=== PATIENT | female | born 1995 | race Caucasian/White ===

== ENCOUNTER 2019-04-06 14:58 | Inpatient (IN) | payer BC ==
[~2019-04-06 14:58] MED LIST: Bupivacaine/Epinephrine 0.25% 30 ML VIAL ONE
[2019-04-06] MEDS ORDERED: Butorphanol Tartrate 1 MG/ML VIAL SLOW IVP PRN (21:07)
[2019-04-06] MEDS ORDERED: Carboprost 250 MCG/ML AMP IM PRN (21:07)
[2019-04-06] MEDS ORDERED: Ibuprofen 800 MG TAB PO PRN (21:07)
[2019-04-06] MEDS ORDERED: Promethazine HCl 25 MG/ML VIAL IM PRN (21:07)
[2019-04-06] MEDS ORDERED: Methylergonovine 0.2 MG/ML VIAL IM PRN (21:07)
[2019-04-06] MEDS ORDERED: Ondansetron PF 4 MG/2 ML Vial IVP PRN (21:07)
[2019-04-06] MEDS ORDERED: Diphenoxylate HCl/Atropine Tablet PO PRN (21:07)
[2019-04-06] MEDS ORDERED: NS / Oxytocin 40 units/1000ml 1,000 ML IV PRN (21:07)
[2019-04-06] MEDS ORDERED: Acetaminophen 500 MG TAB PO PRN (21:07)
[2019-04-06] MEDS ORDERED: Misoprostol 200 MCG TAB PR PRN (21:07)
[2019-04-06] MEDS ORDERED: HYDROcodone/Acetaminophen 5/325 mg Tablet PO PRN (21:07)
[2019-04-06] MEDS ORDERED: Lidocaine 1% (PF) 30 ML VIAL SC PRN (21:07)
[2019-04-06] MEDS ORDERED: hydrALAZINE 20 MG/ML VIAL SLOW IVP PRN (21:07)
[2019-04-06 21:17] VITALS: BMI 40.0
[2019-04-06] MEDS: Lactated Ringer's 1,000 ML IV SCH (21:30)
[2019-04-06] MEDS ORDERED: Penicillin G Potassium 5 MILL.UNITS in Sodium Chloride 0.9% 100 ML IVPB SCH (21:30)
[2019-04-06 21:53] LABS: Hemoglobin 13.5 g/dL (12.0-16.0); Mean Corpuscular HGB CONC 33.8 g/dL (32.0-36.0); Mean Corpuscular Hemoglobin 31.5 pg (27.0-31.0); Mean Platelet Volume 7.9 fL (7.4-10.4); Platelet Count 260 thou/uL (130-400); RBC Distribution Width 11.5 % (11.5-14.5); White Blood Cell (WBC) Count 12.6 thou/uL (4.8-10.8)
[2019-04-06] MEDS: Misoprostol 100 MCG TAB VAG SCH (22:34)
[2019-04-06 22:42] LABS: Syphilis Antibody Nonreactive (Nonreactive)
[2019-04-07 01:22] LABS: HBSAg Index 0.14 S/CO (0-0.99); HIV (1/2) Antibody/Antigen Non-Reactive (NonReactive); HIV 1/2 INDEX 0.07 S/CO (<1.00); Hep B Surf Ag Non-Reactive S/CO (NonReactive)
[2019-04-07] MEDS: Misoprostol 100 MCG TAB VAG SCH ×4 (03:05→22:46)
[2019-04-07] MEDS ORDERED: NS w/ Oxytocin 10 units 500 ML IV SCH (06:00)
[2019-04-07] MEDS: Penicillin G 2.5 MILL.units 2.5 MILL.UNITS in Premix Bag 1 BAG IVPB SCH ×5 (06:01→22:42)
--- NOTE | 2019-04-07 08:26 | PDOC.LDHP ---
Labor and Delivery H&P Chief complaint: scheduled induction HPI: 24 yo G1 @ 39w6d by LMP c/w 8 week CRL who presented for EIOL. Family hx of congenital cataracts on paternal side, otherwise normal antepartum course. MFM sono wnl. Current gestational age (weeks): 39 Due date: 04/08/19 Dating criteria: last menstrual period Grav: 1 Para: 0 Current complications: none Abnormal US findings: Yes Past Medical History: Denies Current medications: pre- vitamins Previous surgical history: none Allergies/Adverse Reactions: Allergies Allergy/AdvReac Type Severity Reaction Status Date / Time No Known Allergies Allergy Unverified 04/06/19 21:18 Social history: none - Physical Exam Vital signs reviewed and normal: yes General: NAD Heart: RRR Lungs: nonlabored breathing Abdomen: gravid Extremeties: no edema FHT: category 1 (130s, mod jamilah, +accels, no decels) [place] contractions every: q2-4 min - Vaginal Exam cm dilated: 3 (AROM clear- FSE and IUPC placed ) Effacement: 75% Station: -2 - OB Labs Blood type: A RH: positive Antibody Screen: negative HIV: negative RPR: negative HEPSAg: negative 1 hour GCT: negative GBS: positive Urine drug screen: negative Rubella: immune - Assessment 39w6d IUP EIOL FOB with h/o congenital cataracts GBS + - Plan Plan: admit to L&D, cervical ripening (s/p cytotec x 2; now on pitocin and s/p AROM), GBS antibiotic prophylaxis, informed consent obtained, anesthesia consult for pain management
[2019-04-07] MEDS ORDERED: Fentanyl 4 mcg/Bup 0.1% Cadd 0 ML ONE (08:33)
[2019-04-07] MEDS ORDERED: Lactated Ringer's 500 ML IV PRN (09:56)
[2019-04-07] MEDS ORDERED: Promethazine HCl 25 MG/ML VIAL IM PRN (09:56)
[2019-04-07] MEDS ORDERED: Naloxone HCl 0.4 mg/ml Vial IVP PRN ×2 (09:56)
[2019-04-07] MEDS ORDERED: Ondansetron PF 4 MG/2 ML Vial IVP PRN (09:56)
[2019-04-07] MEDS ORDERED: diphenhydrAMINE 50 MG/ML VIAL IVP PRN (09:56)
[2019-04-07] MEDS ORDERED: ePHEDrine/0.9% NaCl/PF SYRINGE 50 mg/10 ml SLOW IVP PRN (09:56)
[2019-04-07] MEDS ORDERED: Acetaminophen 325 MG TAB PO PRN (09:56)
[2019-04-07] MEDS ORDERED: Fentanyl 4 mcg/Bupivacaine 0.1% Cassette 100 ML EPIDURAL SCH (10:00)
[2019-04-07] MEDS ORDERED: Communication Order-Pharmacy FS SCH (10:00)
--- NOTE | 2019-04-07 12:35 | PDOC.LDPN ---
Labor & Delivery Progress Note - Subjective Subjective: comfortable - Objective Vital signs reviewed and normal: yes General: NAD Uterine fundus: non tender Dilation: 4 Effacement: 100% Station: 0 FHT: category 2 (130s, mod jamilah, +accels, small variable decels with some ctx that resolve ) - Assessment (1) 39 weeks gestation of Code(s): Z3A.39 - 39 WEEKS GESTATION OF Current Visit: Yes Status : Acute (2) Elective induction of labor planned Code(s): QIC8993 - Current Visit: Yes Status: Acute Plan: continue plan of care (currently not on pitocin and MVUs adequate, will add if ctx decrease ) -: GBS PPX
[2019-04-07] MEDS ORDERED: Lidocaine 1% (PF) 30 ML VIAL ONE (14:46)
[2019-04-07] MEDS ORDERED: Fentanyl 4 mcg/Bup 0.1% Cadd 100 ML ONE (15:53)
[2019-04-07] MEDS: NS / Oxytocin 40 units/1000ml 1,000 ML IV SCH ×2 (16:00→18:49)
--- NOTE | 2019-04-07 16:48 | PDOC.OPDEL ---
OB Operative/Delivery Note Delivery Dr/Surgeon: Renee Sosa DO Pre-Delivery Diagnosis: elective induction Procedure/Post Delivery Dx: spontaneous vaginal delivery Weeks gestation: 39 Anesthesia: epidural - Findings A Sex: female - 1 min: 8 - 5 min: 9 - Additional Findings/Plan Placenta delivered: spontaneous Repaired Obstetrical Laceration: episiotomy (2nd degree episiotomy) Estimated blood loss: QBL 150 cc Compilations/Other Findings: Terminal decel to 40s prior to delivery 2nd degree episiotomy made due to impending compromise Nucha cord x 2 in cephaic presentation Normal appearing placenta Post delivery plan: routine recovery
[2019-04-07 17:02] LABS: Actual Bicarbonate (HCO3v) 21 mEq/L (22-28); Base Excess -4.6 mEq/L (-2.0 to +3.0); pH (Cord, venous) 7.34 (7.32-7.43)
[2019-04-07] MEDS ORDERED: Bisacodyl 10 MG SUPP PR PRN (18:41)
[2019-04-07] MEDS ORDERED: HYDROcodone/Acetaminophen 5/325 mg Tablet PO PRN (18:41)
[2019-04-07] MEDS ORDERED: Methylergonovine 0.2 MG/ML VIAL IM PRN (18:41)
[2019-04-07] MEDS ORDERED: Lanolin Ointment 7 GM TUBE TOP PRN (18:41)
[2019-04-07] MEDS ORDERED: Benzocaine-Menthol 82.5 ML CAN TOP PRN (18:41)
[2019-04-07] MEDS ORDERED: diphenhydrAMINE 25 MG CAP PO PRN (18:41)
[2019-04-07] MEDS ORDERED: Milk Of Magnesia 30 ML UDCUP PO PRN (18:41)
[2019-04-07] MEDS ORDERED: Preparation H Ointment 28 GM TUBE PR PRN (18:41)
[2019-04-07] MEDS ORDERED: hydrALAZINE 20 MG/ML VIAL SLOW IVP PRN (18:41)
[2019-04-07] MEDS ORDERED: Ferrous Sulfate 325 MG TAB PO SCH (19:00)
[2019-04-07] MEDS: Ibuprofen 800 MG TAB PO SCH (21:50)
[2019-04-07] MEDS: Docusate Calcium (SURFAK) 240 MG CAP PO SCH (21:50)
[2019-04-07] MEDS: Lactated Ringer's 1,000 ML IV SCH (22:48)
[2019-04-08] MEDS: Misoprostol 100 MCG TAB VAG SCH ×3 (05:37→21:04)
[2019-04-08] MEDS: Ibuprofen 800 MG TAB PO SCH ×3 (06:14→21:00)
[2019-04-08 06:16] LABS: Hemoglobin 11.5 g/dL (12.0-16.0); Mean Corpuscular HGB CONC 34.7 g/dL (32.0-36.0); Mean Corpuscular Hemoglobin 32.1 pg (27.0-31.0); Mean Corpuscular Volume 92.5 fL (78.0-98.0); Mean Platelet Volume 7.8 fL (7.4-10.4); Platelet Count 220 thou/uL (130-400); RBC Distribution Width 11.6 % (11.5-14.5); White Blood Cell (WBC) Count 15.5 thou/uL (4.8-10.8)
--- NOTE | 2019-04-08 08:31 | PDOC.PP ---
Post Progress Note Post Day #: 1 Subjective: No concerns. Breast feeding. Minimal pain and lochia. PO intake tolerated: yes Flatus: yes Ambulation: yes Vital Signs (12 hours) Temp Pulse Resp BP Pulse Ox 04/08/19 08:24 97.7 F 75 20 117/67 97 04/08/19 04:55 98.2 F 88 18 114/62 04/08/19 00:14 98.5 F 68 18 118/66 04/07/19 21:32 98.4 F 98 16 113/64 95 Weight Weight 248 lb - Physical Examination General: NAD Cardiovascular: RRR Respiratory: non-labored breathing Abdominal: no distention, appropriately TTP Fundus firm & at: below umbilicus Extremities: negative homans (B) Neurological: no gross focal deficits Psychiatric: A&Ox3, normal affect Result Diagrams: 04/08/19 06:09 Additional Labs: Post Labs Blood Type A POSITIVE 04/06/19 23:22 Hep Bs Antigen Non-Reactive S/CO (NonReactive) 04/06/19 21:28 (1) 39 weeks gestation of Code(s): Z3A.39 - 39 WEEKS GESTATION OF Status: Resolved (2) Elective induction of labor planned Code(s): DZA7953 - Status: Resolved (3) Vaginal delivery Code(s): O80 - ENCOUNTER FOR FULL-TERM UNCOMPLICATED DELIVERY Status: Acute - Assessment/Plan PPD1 VSSAF Continue PP care LC today Plan for d/c 1-2 days
[2019-04-08] MEDS: Ferrous Sulfate 325 MG TAB PO SCH ×2 (09:45→21:00)
[2019-04-08] MEDS: Docusate Calcium (SURFAK) 240 MG CAP PO SCH ×2 (09:45→21:01)
[2019-04-08] MEDS: Prenatal Vitamin 1 TAB PO SCH (09:45)
[2019-04-09] MEDS: Misoprostol 100 MCG TAB VAG SCH ×3 (01:26→05:42)
[2019-04-09] MEDS: Ibuprofen 800 MG TAB PO SCH (05:44)
[2019-04-09] MEDS: Prenatal Vitamin 1 TAB PO SCH (08:47)
[2019-04-09] MEDS: Docusate Calcium (SURFAK) 240 MG CAP PO SCH (08:47)
[2019-04-09] MEDS: Ferrous Sulfate 325 MG TAB PO SCH (08:47)
[2019-04-09 08:51] VITALS: BP 128/77; TEMP 98.1
== END 2019-04-09 12:07 | disposition home or self-care (01) | DRG 807 ==
LOC: L&D 19:33 → 3SW 04-07 19:48 → EDSTATUS 04-08 14:57
PROVIDERS: ADMIT Obstetrics & Gynecology; ATTEND Obstetrics & Gynecology
PROC: 10E0XZZ Delivery of Products of Conception, External Approach (ICD-10-PCS; principal; 2019-04-06)
PROC: 10907ZC Drainage of Amniotic Fluid, Therapeutic from Products of Conception, Via Natural or Artificial Opening (ICD-10-PCS; 2019-04-06)
PROC: 3E033VJ Introduction of Other Hormone into Peripheral Vein, Percutaneous Approach (ICD-10-PCS; 2019-04-06)
PROC: 0W8NXZZ Division of Female Perineum, External Approach (ICD-10-PCS; 2019-04-06)
DX: O99.824 Streptococcus B carrier state complicating childbirth (principal); Z37.0 Single live birth; Z3A.39 39 weeks gestation of pregnancy; O70.1 Second degree perineal laceration during delivery
CPT/HCPCS: 36415; 51702; 82805; 85027; 86780; 86850; 86900; 86901; 87340; 87389; J2001; J2540; J3490